=== PATIENT | female | born 1970 | race Caucasian/White ===

== ENCOUNTER 2024-03-29 22:56 | Emergency (ER) | payer MEDICARE, MEDICAID ==
[~2024-03-29] VITALS: Ht 157.5 cm; Wt 53.6 kg
[2024-03-29 22:58] VITALS: BP 91/62; PULSE 93; RESP 17; TEMP 98.7; O2SAT 95
== END 2024-03-30 00:27 | disposition left against medical advice (07) ==
LOC: ER 22:56
DX: R11.2 Nausea with vomiting, unspecified (principal); R19.7 Diarrhea, unspecified; R09.81 Nasal congestion; Z88.8 Allergy status to other drugs, medicaments and biological substances; Z53.21 Procedure and treatment not carried out due to patient leaving prior to being seen by health care provider